=== PATIENT | female | born 1950 | race Caucasian/White ===

== ENCOUNTER 2017-05-20 10:13 | Inpatient (IN) | payer MEDICARE, OTHER ==
[2017-05-20] MEDS ORDERED: NS 0.9% 1000 ML* 2,000 ML IV ONE (12:59)
[2017-05-20 13:40] LABS: Hematocrit 35 % (35-47); Hemoglobin 11.7 g/dl (12.0-16.0); Mean Corpuscular HGB Conc 34 g/dl (31-36); Mean Corpuscular Hemoglobin 28 pg (27-31); Mean Corpuscular Volume 83 fL (80-97); Mean Platelet Volume 7 um3 (7.4-10.4); Red Blood Count 4.16 10^6/ul (4.0-5.4); Red Cell Distribution Width 13 % (10.5-15); White Blood Count 22.3 10^3/ul (3.5-10.8)
[2017-05-20 13:42] LABS: Comments Flag Yes
[2017-05-20 13:44] LABS: Add Diff/Slide Review? Slide Review Added
[2017-05-20 13:59] LABS: Albumin 3.6 g/dL (3.2-5.2); BUN/Creatinine Ratio 18.1 (8-20); C Reactive Protein 127.94 mg/L (< 5.00); Calcium 9.1 mg/dL (8.6-10.3); EGFR African American 103.6 (>60); EGFR Non-African American 80.6 (>60); Potassium 3.7 mmol/L (3.5-5.0); Total Bilirubin 0.6 mg/dL (0.2-1.0); Total Protein 6.6 g/dL (6.4-8.9)
[2017-05-20 14:24] LABS: Urine Bacteria 3+ (Absent); Urine Bilirubin Negative (Negative); Urine Glucose Negative (Negative); Urine Nitrite Positive (Negative)
[2017-05-20] MEDS ORDERED: Iohexol 300* (CONTRAST) 10 ML SDV IV ONE (15:39)
--- NOTE | 2017-05-20 15:39 | RAD ---
Indication: RIGHT upper quadrant abdominal pain. Comparison: July 28, 2010 renal ultrasound. Technique: RIGHT upper quadrant ultrasound. Report: Appropriate direction flow documented in the portal and hepatic veins. 15.4 cm liver is normal in echogenicity. Negative for focal hepatic lesions. Negative for intrahepatic biliary dilatation. 2.8 mm common bile duct. Adequately distended gallbladder with normal 2.1 mm wall is without pathologic finding. Negative for sonographic Pinzon's sign. Unremarkable well visualized pancreas. Negative for ascites. 11.6 x 5.6 x 5.6 cm RIGHT kidney is unremarkable. IMPRESSION: Normal RIGHT upper quadrant ultrasound.
--- NOTE | 2017-05-20 15:59 | RAD ---
INDICATION: ] Right upper quadrant pain COMPARISON: Gallbladder sonogram same date TECHNIQUE: Axial source images were obtained from the hemidiaphragms to the symphysis pubis following administration of oral and intravenous contrast. 104 mL Omnipaque 300 was utilized. Coronal and sagittal reconstructed images were acquired. Lung bases: The lung bases are clear. Liver: The liver is normal in size. There are no masses. There is no ductal dilatation. Gallbladder: There are no calcified gallstones. There is no evidence of wall thickening or pericholecystic fluid. Spleen: The spleen is normal in size. There are no masses. Pancreas: There is no focal pancreatic mass or ductal dilatation. Adrenal glands: There is no evidence of adrenal mass. Kidneys: The kidneys are normal in size and position. There are prompt nephrograms and there is prompt excretion bilaterally. There are no renal parenchymal masses. There is no evidence of nephrolithiasis. Adenopathy: There is no evidence of adenopathy by size criteria. Fluid collections: There are no free or localized fluid collections. Vessels:There are no significant atherosclerotic changes involving the aorta. There is no focal aneurysm. The iliac vessels are normal in caliber. The IVC appears normal. GI tract: There are no acute CT bowel findings. There is no obstruction. The stomach and small bowel appear normal. The lower GI tract is normal. The cecum, ileocecal valve, and terminal ileum appear normal. The appendix is normal. Pelvic organs: The uterus and adnexa appear normal Bladder: There are no bladder masses. Abdominal and pelvic soft tissues: The extraperitoneal abdominal and pelvic soft tissues appear normal.. Osseous structures: There is extensive lumbar surgery with decompression and fusion from L2 through S1. There is prominent degenerative change at the thoracolumbar junction. Other: None IMPRESSION: NO ACUTE CT FINDINGS. NO MASS OR INFLAMMATORY CHANGE.
[2017-05-20] MEDS ORDERED: Acetaminophen TAB* 325 MG PO PRN (16:53)
[2017-05-20] MEDS ORDERED: Ondansetron INJ* 2 MG/ML VIAL IV PRN (16:53)
[2017-05-20] MEDS ORDERED: Diazepam TAB(*) 5 MG PO PRN (17:23)
[2017-05-20] MEDS ORDERED: Hydrocodone/Acetamin 10/325 1 TAB PO PRN (17:23)
[2017-05-20] MEDS ORDERED: tiZANidine TAB* 2 MG PO PRN (17:23)
[2017-05-20] MEDS: cefTRIAXone VIAL(*) 1,000 MG in NS 0.9% 50 ML* 50 ML IVPB SCH (18:57)
--- NOTE | 2017-05-20 19:16 | ED ---
Rosi Sandoval SooYoung, scribed for Trevor Recinos MD on 05/20/17 at 1242 . Abdominal Pain/Female - HPI Summary HPI Summary: A 66 y/o F presents to ED with R-sided abd pain ongoing for past week. Pt was assessed by Dr. Gilliland at 0830 today and referred to ED for evaluation. Associated sx: generalized malaise for past week worsening today; fever with maxT this AM of 102 F; chills; diaphoress; loss of appetite; nausea; difficulty urinating onset today; constipation. Denies cough, v/d, SOB, CP, lightheadedness , dizziness. Aggravating: eating, car ride. No abd surgeries. No PMHx of diverticulitis. PMHx: osteoarthritis. - History of Current Complaint Chief Complaint: EDAbdPain Stated Complaint: FEVER/ABD PAIN Time Seen by Provider: 05/20/17 12:36 Hx Obtained From: Patient, Family/Rn Telemetry Onset/Duration: Gradual Onset, Lasting Days, Still Present Timing: Constant Severity Initially: Moderate Severity Currently: Moderate Pain Intensity: 5 Pain Scale Used: 0-10 Numeric Location: Discrete At: RUQ, Discrete At: RLQ Radiates: No Aggravating Factor(s): Food, Movement, Other: - car ride Associated Signs and Symptoms: Positive: Diaphoresis, Fever, Constipation, Urinary Symptoms, Decreased Appetite, Nausea. Negative: Cough, Chest Pain, Vomiting, Diarrhea Allergies/Adverse Reactions: Allergies Allergy/AdvReac Type Severity Reaction Status Date / Time No Known Allergies Allergy Verified 05/20/17 10:18 Home Medications: Home Medications Atenolol TAB* [Tenormin TAB* 25 MG] 25 mg PO DAILY 05/20/17 [History Confirmed 05/20/17] Diazepam TAB(*) [Valium TAB(*)] 5 mg PO BID PRN 05/20/17 [History Confirmed ] Diclofenac Sodium EC TAB* [Voltaren EC TAB*] 75 mg PO BID WITH MEALS 05/20/17 [ History Confirmed 05/20/17] Hydrocodone/Acetamin 10/325(NF [[place] 10/325 (NF)] 1 tab PO Q4HR 05/20/17 [ History Confirmed 05/20/17] Tizanidine HCl 4 mg PO TID PRN 05/20/17 [History Confirmed 05/20/17] PMH/Surg Hx/FS Hx/Imm Hx Previously Healthy: No Musculoskeletal History: Reports: Hx Arthritis - osteoarthritis Denies: Hx Rheumatoid Arthritis, Hx Osteoporosis - Cancer History Hx Chemotherapy: No Hx Radiation Therapy: No - Surgical History Surgery Procedure, Year, and Place: SPINAL FUSIONS Infectious Disease History: No Infectious Disease History: Denies: Traveled Outside the [place] in Last 30 Days - Family History Known Family History: Positive: Other - pos: Breast CA - Social History Occupation: Employed Full-time Lives: With Family Alcohol Use: Occasionally Hx Substance Use: No Substance Use Type: Reports: None Hx Tobacco Use: Yes Smoking Status (MU): Former Smoker Review of Systems Positive: Fever, Chills, Skin Diaphoresis Negative: Chest Pain Negative: Shortness Of Breath, Cough Positive: Abdominal Pain, Nausea, Other - pos: loss of appetite, constipation. Negative: Vomiting, Diarrhea Positive: other - pos: difficulty urinating Neurological: Other - neg: dizziness, lightheadedness Positive: Weakness - generalized All Other Systems Reviewed And Are Negative: Yes Physical Exam - Summary Physical Exam Summary: The patient is well-nourished in no acute distress and in no acute pain. The skin is warm, diaphoretic and pale. HEENT: The head is normocephalic and atraumatic. The pupils are equal and reactive. The conjunctivae are clear and without drainage. Sclera is not icteric. Nares are patent and without drainage. Mouth reveals dry oral mucous membranes and the throat is without erythema and exudate. The external ears are intact. The ear canals are patent and without drainage. The tympanic membranes are intact. Neck is supple with full range of motion and non-tender. There are no carotid bruits. There is no neck vein distension. Respiratory: Chest is non-tender. Lungs are clear to auscultation and breath sounds are symmetrical and equal. Cardiovascular: Hear is regular rate and rhythm. There is no murmur or rub auscultated. There is no peripheral edema and pulses are symmetrical and equal. Abdomen: There is R-sided percussive tenderness. There is no tenderness to L side. RUQ tenderness over gallbladder, RLQ tenderness over McBurney's point. No CVA tenderness. There are normal bowel sounds heard in all four quadrants and there is no organomegaly palpated. Musculoskeletal: There is no back pain noted. Extremities are non-tender with full range of motion. Capillary refill is 2 seconds. There is no peripheral edema or calf tenderness elicited. Neurological: Patient is alert and oriented to person, place and time. The patient has symmetrical motor strength in all four extremities. Cranial nerves are grossly intact. Deep tendon reflexes are symmetrical and equal in all four extremities. Psychiatric: The patient has an appropriate affect and does not exhibit any anxiety or depression. Triage Information Reviewed: Yes Vital Signs On Initial Exam: Initial Vitals Temp Pulse Resp BP Pulse Ox 98.4 F 88 18 104/54 96 05/20/17 10:15 05/20/17 10:15 05/20/17 10:15 05/20/17 10:15 05/20/17 10:15 Vital Signs Reviewed: Yes - [place] Coma Scale Coma Scale Total: 15 Diagnostics - Vital Signs Vital Signs Temp Pulse Resp BP Pulse Ox 05/20/17 12:30 70 108/56 96 05/20/17 12:29 99 F 63 18 108/52 96 05/20/17 12:25 67 95 05/20/17 12:24 101/54 05/20/17 11:15 99.9 F 77 16 100/57 96 05/20/17 10:15 98.4 F 88 18 104/54 96 - Laboratory Lab Results: Lab Results 05/20/17 05/20/17 05/20/17 Range/Units 13:25 13:25 13:25 WBC 22.3 H (3.5-10.8) 10^3/ul RBC 4.16 (4.0-5.4) 10^6/ul Hgb 11.7 L (12.0-16.0) g/dl Hct 35 (35-47) % MCV 83 (80-97) fL MCH 28 (27-31) pg MCHC 34 (31-36) g/dl RDW 13 (10.5-15) % Plt Count 229 (150-450) 10^3/ul MPV 7 L (7.4-10.4) um3 Neut % (Auto) 93.3 H (38-83) % Lymph % (Auto) 2.7 L (25-47) % [place] % (Auto) 3.8 (1-9) % Eos % (Auto) 0 (0-6) % Baso % (Auto) 0.2 (0-2) % Absolute Neuts (auto) 20.8 H (1.5-7.7) 10^3/ul Absolute Lymphs (auto) 0.6 L (1.0-4.8) 10^3/ul Absolute Monos (auto) 0.9 H (0-0.8) 10^3/ul Absolute Eos (auto) 0 (0-0.6) 10^3/ul Absolute Basos (auto) 0 (0-0.2) 10^3/ul Absolute Nucleated RBC 0.01 10^3/ul Nucleated RBC % 0 Sodium 131 L (133-145) mmol/L Potassium 3.7 (3.5-5.0) mmol/L Chloride 98 L (101-111) mmol/L Carbon Dioxide 25 (22-32) mmol/L Anion Gap 8 (2-11) mmol/L BUN 13 (6-24) mg/dL Creatinine 0.72 (0.51-0.95) mg/dL Est GFR ( Amer) 103.6 (>60) Est GFR (Non-Af Amer) 80.6 (>60) BUN/Creatinine Ratio 18.1 (8-20) Glucose 162 H (70-100) mg/dL Lactic Acid 1.2 (0.5-2.0) mmol/L Calcium 9.1 (8.6-10.3) mg/dL Total Bilirubin 0.60 (0.2-1.0) mg/dL AST 28 (13-39) U/L ALT 23 (7-52) U/L Alkaline Phosphatase 89 (34-104) U/L C-Reactive Protein 127.94 H (< 5.00) mg/L Total Protein 6.6 (6.4-8.9) g/dL Albumin 3.6 (3.2-5.2) g/dL Globulin 3.0 (2-4) g/dL Albumin/Globulin Ratio 1.2 (1-3) Amylase 26 L (29-103) U/L Lipase 11 (11.0-82.0) U/L Urine Color Urine Appearance Urine pH (5-9) Ur Specific [place] (1.010-1.030) Urine Protein (Negative) Urine Ketones (Negative) Urine Blood (Negative) Urine Nitrate (Negative) Urine Bilirubin (Negative) Urine Urobilinogen (Negative) Ur Leukocyte Esterase (Negative) Urine WBC (Auto) (Absent) Urine RBC (Auto) (Absent) Ur Squamous Epith Cells (Absent) Urine Bacteria (Absent) Urine Glucose (Negative) 05/20/17 Range/Units 13:50 WBC (3.5-10.8) 10^3/ul RBC (4.0-5.4) 10^6/ul Hgb (12.0-16.0) g/dl Hct (35-47) % MCV (80-97) fL MCH (27-31) pg MCHC (31-36) g/dl RDW (10.5-15) % Plt Count (150-450) 10^3/ul MPV (7.4-10.4) um3 Neut % (Auto) (38-83) % Lymph % (Auto) (25-47) % [place] % (Auto) (1-9) % Eos % (Auto) (0-6) % Baso % (Auto) (0-2) % Absolute Neuts (auto) (1.5-7.7) 10^3/ul Absolute Lymphs (auto) (1.0-4.8) 10^3/ul Absolute Monos (auto) (0-0.8) 10^3/ul Absolute Eos (auto) (0-0.6) 10^3/ul Absolute Basos (auto) (0-0.2) 10^3/ul Absolute Nucleated RBC 10^3/ul Nucleated RBC % Sodium (133-145) mmol/L Potassium (3.5-5.0) mmol/L Chloride (101-111) mmol/L Carbon Dioxide (22-32) mmol/L Anion Gap (2-11) mmol/L BUN (6-24) mg/dL Creatinine (0.51-0.95) mg/dL Est GFR ( Amer) (>60) Est GFR (Non-Af Amer) (>60) BUN/Creatinine Ratio (8-20) Glucose (70-100) mg/dL Lactic Acid (0.5-2.0) mmol/L Calcium (8.6-10.3) mg/dL Total Bilirubin (0.2-1.0) mg/dL AST (13-39) U/L ALT (7-52) U/L Alkaline Phosphatase (34-104) U/L C-Reactive Protein (< 5.00) mg/L Total Protein (6.4-8.9) g/dL Albumin (3.2-5.2) g/dL Globulin (2-4) g/dL Albumin/Globulin Ratio (1-3) Amylase (29-103) U/L Lipase (11.0-82.0) U/L Urine Color Yellow Urine Appearance Cloudy Urine pH 6.0 (5-9) Ur Specific [place] 1.011 (1.010-1.030) Urine Protein Negative (Negative) Urine Ketones Negative (Negative) Urine Blood 1+ H (Negative) Urine Nitrate Positive H (Negative) Urine Bilirubin Negative (Negative) Urine Urobilinogen Negative (Negative) Ur Leukocyte Esterase 2+ H (Negative) Urine WBC (Auto) 3+(>20/hpf) H (Absent) Urine RBC (Auto) Trace(0-2/hpf) (Absent) Ur Squamous Epith Cells Present H (Absent) Urine Bacteria 3+ H (Absent) Urine Glucose Negative (Negative) Result Diagrams: 05/20/17 13:25 05/20/17 13:25 Lab Statement: Any lab studies that have been ordered have been reviewed, and results considered in the medical decision making process. - CT ABD/PEL CT CT Interpretation: No Acute Changes - IMPRESSION: NO ACUTE CT FINDINGS. NO MASS OR INFLAMMATORY CHANGE. ED physician has reviewed this radiology report and agrees CT Interpretation Completed By: Radiologist - Ultrasound No standard instances Ultrasound Interpretation: No Acute Changes - IMPRESSION: Nml RUQ U/S. ED physician has reviewed this radiology report and agrees. Ultrasound Interpretation Completed By: Radiologist - EKG 1441 Cardiac Rate: NL - 69bpm EKG Rhythm: Sinus Rhythm ST Segment: Normal - no STEMI Ectopy: PVCs EKG Interpretation: nml axis Re-Evaluation - Re-Evaluation 1 Re-Evaluation Time: 14:57 Change: Unchanged Comment: Discussing UA results with pt. will give ABX. Pt voiced understanding. Still waiting on U/S read. 2 Re-Evaluation Time: 16:07 Change: Unchanged Comment: Discussing U/S and CT results with pt. Discussed possible admittance. Pt voiced understanding. Abdominal Pain Fem Course/Dx - Course Course Of Treatment: A 66 y/o F presents to ED with R-sided abd pain ongoing for past week. Pt was assessed by Dr. Zavala at 0830 today and referred to ED for evaluation. Associated sx: generalized malaise for past week worsening today ; fever with maxT this AM of 102 F; chills; loss of appetite; nausea; difficulty urinating onset today; constipation. Denies cough, v/d, SOB, CP, lightheadedness, dizziness. Aggravating: eating, car ride. No abd surgeries. No PMHx of diverticulitis. PMHx: osteoarthritis. Bloodwork is without significant abnormality except WBC 22.3, CRP 127.94, glucose 162. UA results show 1+ blood, positive nitrates, 2+ esterase, 3+ WBC, 3+ bacteria, squamous epithelia present. EKG shows NSR at 69 bpm, with PVCs. Nml U/S. Pt given fluids, Piperacillin Sod/Tazobactam Sod in ED. ABD/PEL CT is negative. Spoke with hospitalist,pt will be admitted. - Diagnoses Differential Diagnosis: Positive: Appendicitis, Diverticulitis, Gall Bladder Disease, Pancreatitis, Urinary Tract Infection, Other - pyleonephritis Provider Diagnoses: Pyelonephritis - Provider Notifications Discussed Care Of Patient With: Ibrahima Still - hospitalist Time Discussed With Above Provider: 16:18 Instructed by Provider To: Admit As Inpatient Discharge - Discharge Plan Condition: Stable Disposition: ADMITTED TO [facility] The documentation as recorded by the Rosi hernandez SooYoung accurately reflects the service I personally performed and the decisions made by me, Trevor Recinos MD.
[2017-05-20] MEDS: Diclofenac Sodium EC TAB* 25 MG PO SCH ×2 (21:24→21:50)
[2017-05-20] MEDS: Heparin VIAL(*) 5000 UNITS/ML VIAL (FIVE THOUSAND) SUBCUT SCH (21:51)
--- NOTE | 2017-05-20 22:41 | HP ---
CC: Dr. Davidson Gilliland * MEDICINE HISTORY AND PHYSICAL: DATE OF ADMISSION: 05/20/17 PROVIDER: Jef Aldridge NP ATTENDING PHYSICIAN: Dr. Bonifacio Still *(as dictated by Jef Aldrideg NP) PRIMARY CARE PROVIDER: Dr. Davidson Gilliland. CHIEF COMPLAINT: Right upper quadrant pain. HISTORY OF PRESENT ILLNESS: Ms. Mtz is a 66-year-old female, who reports a sudden onset of chills with subsequent right upper quadrant pain. States that she started having chills and significant rigors and went to bed with pajamas and a coat and several blankets. She progressively got better, but then this morning woke up with significant pain and chills and went to see her PCP, who referred her to the ER. She reports accompanying symptoms of decreased p.o. intake as well as nausea. She denies any dysuria. She denies cold or flu-like symptoms including cough, shortness of breath. She reports nausea, but denies vomiting or diarrhea. She denies any focal weakness or sensory loss. Her pain has been mostly localized to the right side of her abdomen. Here in the ER, the patient was found to have a fever of 101.9. The patient was noted to be 102 at the doctor's office. She has had elevated white blood cell count of 22.3 and elevated CRP of 127. Urinalysis was concerning for positive nitrites, leukocyte esterase, and 3+ wbc's, as well as 3+ bacteria. CT of the abdomen and pelvis showed no acute findings. No evidence of calcified gallstones or wall thickening in the gallbladder. Appendix was normal. PAST MEDICAL HISTORY: Includes: 1. Degenerative joint disease. 2. Generalized anxiety disorder. 3. Hypertension. 4. Hyperlipidemia. 5. Chronic low back pain. 6. Osteoarthritis. PAST SURGICAL HISTORY: Includes 2 spinal fusions. HOME MEDICATIONS: 1. Tizanidine 4 mg t.i.d. p.r.n. 2. [place] 10/325 one tab q.4 hours. 3. Diclofenac EC 75 mg b.i.d. with meals. 4. Diazepam 5 mg b.i.d. p.r.n. 5. Atenolol 25 mg daily. ALLERGIES: No known drug allergies. FAMILY HISTORY: She had a father who of heart disease and mother who of lung cancer. SOCIAL HISTORY: The patient is a former smoker. She quit 28 years ago. She reports very occasional alcohol use, perhaps 2 to 3 glasses of wine per month. She denies any history of illicit drug use. She is retired. 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 Her , Odilon Mtz, is her healthcare proxy. REVIEW OF SYSTEMS: A 12-point review of systems was completed. All pertinent positives and negatives are included in the HPI. PHYSICAL EXAMINATION GENERAL: This is a pleasant, well-developed female, who appears to be in no acute distress. She is lying in the ED stretcher. VITAL SIGNS: Temperature 101.9, heart rate 82, respiratory rate 18, blood pressure 110/85, and O2 saturation 96% on room air. HEENT: Head is atraumatic and normocephalic. Face is symmetrical. Pupils are equal, round, and reactive to light. Extraocular movements are intact. Oral mucosa appears dry. NECK: Supple. No lymphadenopathy appreciated. LUNGS: Clear to auscultation bilaterally. CARDIAC: S1 and S2 heart sounds. Regular rate and rhythm. No murmurs, rubs, or gallops. There is no peripheral edema. Peripheral pulses are equal and symmetrical. ABDOMEN: Soft. There is tenderness with palpation to the right upper quadrant that extends towards the right mid abdomen. Bowel sounds are present times all 4 quadrants. There is no CVA tenderness. MUSCULOSKELETAL: No clubbing or cyanosis. The patient has full range of motion. NEURO: Cranial nerves II through XII were grossly intact. The patient moves all extremities. No focal deficits noted. PSYCH: She is alert and oriented x3. Affect is appropriate. SKIN: Appears grossly intact. The patient's hands are clammy at this time. DIAGNOSTIC STUDIES/LAB DATA: CBC: WBC 22.3, hemoglobin 11.7, hematocrit 35, platelet count 229. CMP: Sodium 131, potassium 3.7, chloride 98, carbon dioxide 25, BUN 13, creatinine 0.72, glucose 162, lactic acid 1.2, calcium 9.1. AST 28, ALT 23, alk phos 89. CRP 127.94. Albumin 3.6, amylase 26, lipase 11. UA as per above. CT of the abdomen and pelvis as per above. Abdominal ultrasound shows a normal right upper quadrant ultrasound. EKG shows sinus rhythm with PVCs. ASSESSMENT AND PLAN: Ms. Mtz is a 66-year-old female, who presents today with concern for sepsis, likely secondary to pyelonephritis. She will be admitted as an inpatient. Plan is as follows: 1. Pyelonephritis. The patient has right upper quadrant abdominal pain, but normal gallbladder and appendix is clear, though this is most likely referred pain from what I suspect is pyelonephritis given the patient's elevated white blood cell count, CRP, and urinalysis. She received Zosyn in the ER. We will switch her to ceftriaxone with her first dose being tonight. She has recently spiked a 101.9 fever. Blood cultures are pending. At this point in time, we will continue with fluid resuscitation with normal saline at 100 mL an hour. The patient previously received 2 L of fluid in the ED. We will get urine cultures. Continue to monitor the patient closely. 2. Hyponatremia. Secondary likely to hypovolemia as she reports decreased p.o. intake over the past few days. She will be receiving fluid resuscitation. We will follow her BMP tomorrow. 3. Sepsis on admission. The patient meets sepsis on admission with systemic inflammatory response syndrome criteria of temperature of 102, elevated WBC count, and meets sepsis criteria by SOFA criteria, with low MAP and systolic blood pressure less than 90 on admission. 4. History of hypertension. The patient is currently normotensive and actually somewhat hypotensive secondary to sepsis. We will hold her atenolol. 5. History of generalized anxiety disorder. Continue the patient's p.r.n. diazepam with orders to hold for sedation. 6. Degenerative joint disease and osteoarthritis. Continue home medications of diclofenac, tizanidine, and [place] p.r.n. 7. Fluids, electrolytes, and nutrition. The patient is ordered IV normal saline as well as a heart-healthy diet. 8. DVT prophylaxis. She is ordered subcu heparin. 9. Code status. The patient is a full code. TIME SPENT: Time spent on this admission was approximately 60 minutes, more than half the time was spent [id number] with the patient obtaining history and physical, performing the physical examination, and reviewing the plan of care. Plan of care was also reviewed with my attending, Dr. Still, who is in agreement. JEF ALDRIDGE, WINE CELLAR WORKER [id number]/[facility] #: [id number] [facility]le
[2017-05-21] MEDS: NS 0.9% 1000 ML* 1,000 ML IV SCH ×2 (03:22→22:05)
[2017-05-21] MEDS: Heparin VIAL(*) 5000 UNITS/ML VIAL (FIVE THOUSAND) SUBCUT SCH ×3 (06:11→21:23)
[2017-05-21 07:45] LABS: Comments Flag Yes; Hematocrit 31 % (35-47); Hemoglobin 10.3 g/dl (12.0-16.0); Mean Corpuscular HGB Conc 34 g/dl (31-36); Mean Corpuscular Hemoglobin 28 pg (27-31); Mean Corpuscular Volume 85 fL (80-97); Red Blood Count 3.66 10^6/ul (4.0-5.4); Red Cell Distribution Width 13 % (10.5-15)
[2017-05-21 07:46] LABS: Add Diff/Slide Review? Slide Review Added
[2017-05-21 07:52] LABS: BUN/Creatinine Ratio 15.7 (8-20); Calcium 8.2 mg/dL (8.6-10.3); EGFR Non-African American 83.2 (>60); Potassium 3.6 mmol/L (3.5-5.0)
[2017-05-21 08:28] LABS: Mean Platelet Volume 8 um3 (7.4-10.4)
[2017-05-21] MEDS: Diclofenac Sodium EC TAB* 25 MG PO SCH ×2 (09:12→16:40)
[2017-05-21] MEDS: cefTRIAXone VIAL(*) 1,000 MG in NS 0.9% 50 ML* 50 ML IVPB SCH (16:38)
--- NOTE | 2017-05-21 17:57 | PN ---
Subjective Date of Service: 05/21/17 Interval History: Patient seen and examined at bedside. Denies fever, chills, shortness of breath , chest discomfort, N/V/D. Family History: Unchanged from Admission Social History: Unchanged from Admission Past Medical History: Unchanged from Admission Objective Active Medications: Acetaminophen (Tylenol Tab*) 650 mg PO Q4H PRN Reason: FEVER/PAIN Hydrocodone Bitart/Acetaminophen ([place] 10/325 (Nf)) 1 tab PO Q4HR PRN Reason: PAIN - SEVERE Diazepam (Valium Tab(*)) 5 mg PO BID PRN Reason: ANXIETY Diclofenac Sodium (Voltaren Ec Tab*) 75 mg PO BID WITH MEALS DEANNA Heparin Sodium (Porcine) (Heparin Vial(*)) 5,000 units SUBCUT Q8HR DEANNA Sodium Chloride (Ns 0.9% 1000 Ml*) 1,000 mls @ 100 mls/hr IV PER RATE DEANNA Ceftriaxone Sodium 1,000 mg/ (Sodium Chloride) 50 mls @ 200 mls/hr IVPB Q24H DEANNA Ondansetron HCl (Zofran Inj*) 4 mg IV Q6H PRN Reason: NAUSEA/VOMITING Tizanidine HCl (Zanaflex Tab*) 4 mg PO TID PRN Reason: SPASMS - MUSCLE Vital Signs 05/20/17 05/20/17 05/20/17 18:06 18:08 19:23 Temperature 103.0 F Pulse Rate 49 Respiratory 22 20 Rate Blood Pressure 148/104 (mmHg) O2 Sat by Pulse 87 Oximetry 05/20/17 05/20/17 05/20/17 20:00 20:15 20:18 Temperature 102 F 102.0 F Pulse Rate 93 93 Respiratory 19 18 18 Rate Blood Pressure 113/47 113/47 (mmHg) O2 Sat by Pulse 92 92 Oximetry 05/20/17 05/20/17 05/21/17 21:55 23:48 03:21 Temperature 98.5 F 97.9 F Pulse Rate 76 63 Respiratory 16 16 Rate Blood Pressure 118/56 108/46 (mmHg) O2 Sat by Pulse 97 97 Oximetry 05/21/17 05/21/17 05/21/17 07:57 08:00 11:45 Temperature 96.9 F 98.0 F Pulse Rate 67 76 Respiratory 20 18 20 Rate Blood Pressure 129/66 122/64 (mmHg) O2 Sat by Pulse 100 98 Oximetry 05/21/17 05/21/17 15:17 16:02 Temperature 97.4 F Pulse Rate 66 Respiratory 18 Rate Blood Pressure 101/55 102/68 (mmHg) O2 Sat by Pulse 97 Oximetry Oxygen Devices in Use Now: None Appearance: NAD, laying in bed Ears/Nose/Mouth/Throat: Mucous Membranes Moist Respiratory: Symmetrical Chest Expansion and Respiratory Effort, Clear to Auscultation Cardiovascular: NL Sounds; No Murmurs; No JVD, RRR Abdominal: NL Sounds; No Tenderness; No Distention, - - No CVA tenderness Extremities: No Edema Skin: No Rash or Ulcers Neurological: Alert and Oriented x 3, NL Muscle Strength and Tone Lines/Tubes/Other Access: Clean, Dry and Intact Peripheral IV - site benign Nutrition: Taking PO's Result Diagrams: 05/21/17 07:28 05/21/17 07:28 Additional Lab and Data: Assess/Plan/Problems-Billing Assessment: Ms. Mtz is a 66 yo female with PMH significant for anxiety, HTN, HLD, chronic low back pain and osteoarthritis who presented to the emergency room with chills and RUQ pain and was found to have sepsis suspected to be secondary to pyelonephritis. - Patient Problems (1) Sepsis Comment: - Meeting SIRS criteria on admisison (fever and leukocytosis) - Meeting Sofa criteria on admisison (low MAP and SBP >90) - No longer meeting SIRS or qSofa criteria (2) Pyelonephritis Code(s): N12 - TUBULO-INTERSTITIAL NEPHRITIS, NOT SPCF ACUTE OR CHRONIC SNOMED Code(s): 92690540 Comment: - Leukocytosis improving, febrile temp max 103 - Urine culture with ecoli - Ecoli bacteremia, Blood cultures with ecoli - Continue Ceftriaxone (3) Hyponatremia Code(s): E87.1 - HYPO-OSMOLALITY AND HYPONATREMIA SNOMED Code(s): 09445637 Comment: - Resolved - Suspect secondary to hypovolemia (4) HTN (hypertension) Code(s): I10 - ESSENTIAL (PRIMARY) HYPERTENSION SNOMED Code(s): 79594822 Comment: - Normotensive, with some hypotension - Resume atenolol in AM if BP allow (5) Anxiety Code(s): F41.9 - ANXIETY DISORDER, UNSPECIFIED SNOMED Code(s): 07842256 Comment: - Continue diazepam PRN (6) Osteoarthritis Code(s): M19.90 - UNSPECIFIED OSTEOARTHRITIS, UNSPECIFIED SITE SNOMED Code(s) : 108381630 Comment: - Continue diclofenax, tizanidine and [place] PRN (7) DVT prophylaxis Code(s): BOP6310 - SNOMED Code(s): 249939572 Comment: - SQ heparin (8) Full code status Code(s): Z78.9 - OTHER SPECIFIED HEALTH STATUS SNOMED Code(s): 379945029 Status and Disposition: Inpatient. Discharge to home when medically stable, possibly in 2-3 days.
[2017-05-22] MEDS: Heparin VIAL(*) 5000 UNITS/ML VIAL (FIVE THOUSAND) SUBCUT SCH (05:57)
[2017-05-22 07:44] LABS: Hematocrit 31 % (35-47); Hemoglobin 10.8 g/dl (12.0-16.0); Mean Corpuscular HGB Conc 35 g/dl (31-36); Mean Corpuscular Hemoglobin 29 pg (27-31); Mean Corpuscular Volume 84 fL (80-97); Mean Platelet Volume 7 um3 (7.4-10.4); Red Cell Distribution Width 13 % (10.5-15); White Blood Count 9.6 10^3/ul (3.5-10.8)
[2017-05-22] MEDS: Diclofenac Sodium EC TAB* 25 MG PO SCH (08:04)
[2017-05-22 13:02] VITALS: BP 141/67
--- NOTE | 2017-05-23 03:53 | DS ---
CC: Dr. Davidson Gilliland * DISCHARGE SUMMARY: DATE OF ADMISSION: 05/20/17 DATE OF DISCHARGE: 05/22/17 ADMISSION DIAGNOSES: 1. Sepsis from urinary tract infection. 2. Hyponatremia. 3. Hypertension. 4. Degenerative joint disease. 5. General anxiety. 6. Chronic low back pain. DISCHARGE DIAGNOSES: 1. Sepsis from urinary tract infection. 2. Hyponatremia. 3. Hypertension. 4. Degenerative joint disease. 5. General anxiety. 6. Chronic low back pain. HOSPITAL COURSE: The patient is a 66-year-old woman presents to [facility] with chief complaint of sudden onset of chills and right upper quadrant pain. The patient denied increased frequency of urination, pain on urination or burning on urination. The patient was found to have a positive UTI. She has also met criteria for sepsis. Furthermore, she became bacteremic with the same pathogen E. coli that caused the UTI. The patient was on Zosyn and then Rocephin, both of which the pathogen was susceptible to. The patient quickly defervesced and her white count, which was initially 22.3 went down from 9.6. Patient also in the weekend felt considerably improved and was anxious to go home by the date of discharge. PHYSICAL EXAMINATION: On the date of discharge; temperature 97.7 degrees, heart rate 65 beats per minute, oxygen saturation 98% on room air, respiratory rate 18 breaths per minute, blood pressure 141/67. HEENT: Normocephalic, atraumatic. Pupils equal, round, and reactive to light. Moist mucous membranes. Neck: Supple. No JVD, bruits, palpable thyroid or lymphadenopathy. Chest: Clear to auscultation and percussion bilaterally. Cardiovascular Exam : S1, S2 appreciated. Regular rate and rhythm. No murmurs, gallops, or rubs. Abdominal Exam: Positive bowel sounds in all 4 quadrants, soft, nontender, nondistended. No hepatosplenomegaly. Extremities: No cyanosis, clubbing, or edema. +2 peripheral pulses bilaterally. Neuro: Alert and oriented x3. Moves all extremities. Skin: No rashes or abnormalities. STUDIES DONE WHILE IN THE HOSPITAL: Abdominal ultrasound, 05/20/17, impression : Normal right upper quadrant ultrasound. Abdominopelvic CT, 05/20/17, as interpreted by Radiology, no acute CT findings. No mass or inflammatory change. DISCHARGE MEDICATIONS: 1. Diclofenac 75 mg twice a day with meal. 2. Tizanidine 4 mg 3 times a day as needed. 3. Valium 5 mg twice a day as needed. 4. Pierz one tab every 4 hours as needed. 5. Atenolol 25 mg daily. 6. Amoxicillin 875 mg p.o. b.i.d. for 8 more days. DISCHARGE PLAN: The patient will be discharged to home. She will follow up with her PCP this week. The patient completed entire course of antibiotics. Patient encouraged to push fluid this week and rest. The patient will return to ED if symptoms recur. TIME SPENT: Over 40 minutes was spent on this discharge; more than 25 minutes of which was spent in direct [id number] contact with the patient in evaluation , physical exam, counseling, and coordination of care. [id number]/CPS #: [id number]
== END 2017-05-22 16:45 | disposition home or self-care (01) | DRG 872 ==
LOC: ED 10:13 → MED 16:50
PROVIDERS: ADMIT Internal Medicine; ATTEND Internal Medicine
DX: A41.51 Sepsis due to Escherichia coli [E. coli] (principal); E87.1 Hypo-osmolality and hyponatremia; I10 Essential (primary) hypertension; N39.0 Urinary tract infection, site not specified; M19.90 Unspecified osteoarthritis, unspecified site; R40.2412 Glasgow coma scale score 13-15, at arrival to emergency department; F41.1 Generalized anxiety disorder; E78.5 Hyperlipidemia, unspecified; B96.20 Unspecified Escherichia coli [E. coli] as the cause of diseases classified elsewhere; G89.29 Other chronic pain; M54.5 Low back pain; Z82.49 Family history of ischemic heart disease and other diseases of the circulatory system; Z80.1 Family history of malignant neoplasm of trachea, bronchus and lung; Z87.891 Personal history of nicotine dependence; Z80.3 Family history of malignant neoplasm of breast; Z98.1 Arthrodesis status; Z72.89 Other problems related to lifestyle
CPT/HCPCS: 36415; 74177; 76705; 80048; 80053; 81003; 81015; 82150; 83605; 83690; 85025; 86140; 87040; 87077; 87086; 87186; 87205; 93005; A9270-GY; J0696; J1644; J2405; J2543; Q9967